=== PATIENT | male | born 1960 | race African-American/Black ===

== ENCOUNTER 2020-04-14 14:37 | Emergency (ER) | payer MEDICAID ==
[~2020-04-14] VITALS: Ht 177.8 cm; Wt 100.0 kg
[~2020-04-14 14:37] MED LIST: GABA-529 PO; NAPR-681 PO
[2020-04-14 18:14] LABS: BASOPHILS % 0.4 % (0.0-2.0); EOSINOPHILS % 2.2 % (0.0-5.0); HEMATOCRIT. 41.7 % (42.0-52.0); HEMOGLOBIN. 14.1 g/dL (14.0-18.0); LYMPHOCYTES % 38.1 % (20.0-50.0); MEAN CORPUSCULAR HEMOGLOBIN 30.3 pg (28.0-32.0); MEAN CORPUSCULAR VOLUME 89.9 fL (80.0-94.0); MEAN PLATELET VOLUME 10.2 fl (7.4-10.4); MONOCYTES % 6.5 % (2.0-8.0); NEUTROPHILS % 52.8 % (40.0-76.0); PLATELET 154 x1000/uL (130-400); RED BLOOD CELL COUNT 4.64 mill/uL (4.7-6.1); RED CELL DISTRIBUTION WIDTH 13.8 % (11.6-14.6)
[2020-04-14 18:20] LABS: CHLORIDE 102 mEq/L (98-107)
[2020-04-14 18:23] LABS: PROTHROMBIN TIME 10.9 sec (9.6-11.0)
[2020-04-14 18:24] LABS: CLARITY URINE CLEAR (CLEAR); COLOR URINE YELLOW (YELLOW); KETONES URINE TRACE (NEGATIVE); LEUKOCYTE ESTERASE URINE 2+ (NEGATIVE); NITRITE URINE NEGATIVE (NEGATIVE); OCCULT BLOOD URINE NEGATIVE (NEGATIVE); PH URINE 5.5 (4.5-8.0); PROTEIN URINE NEGATIVE (NEGATIVE); SPECIFIC GRAVITY URINE 1.018 (1.005-1.030); UROBILINOGEN URINE 0.2 E.U./dL (0.2-1.0)
[2020-04-14 20:02] VITALS: BP 140/76
== END 2020-04-14 20:11 | disposition home or self-care (01) ==
LOC: ER 14:37
DX: R10.11 Right upper quadrant pain (principal); E11.9 Type 2 diabetes mellitus without complications; I10 Essential (primary) hypertension; F12.10 Cannabis abuse, uncomplicated
CPT/HCPCS: 36415; 71101; 76705; 80053; 81003; 85025; 99285

== ENCOUNTER 2024-01-28 08:38 | Emergency (ER) | payer MEDICAID ==
[~2024-01-28] VITALS: Ht 180.3 cm; Wt 95.3 kg
[~2024-01-28 08:38] MED LIST changes: +PROT40 MT
[2024-01-28 08:42] VITALS: O2SAT 100
[2024-01-28 09:21] LABS: BASOPHILS % 0.5 % (0.0-2.0); DIFFERENTIAL COMMENT 0; EOSINOPHILS % 2.3 % (0.0-5.0); HEMATOCRIT. 43.4 % (42.0-52.0); HEMOGLOBIN. 13.9 g/dL (14.0-18.0); LYMPHOCYTES % 34.1 % (20.0-50.0); MEAN CORPUSCULAR HEMOGLOBIN 29.7 pg (28.0-32.0); MEAN CORPUSCULAR HGB CONC 32.1 g/dL (31.0-37.0); MEAN CORPUSCULAR VOLUME 92.6 fL (80.0-94.0); MEAN PLATELET VOLUME 10.2 fl (7.4-10.4); MONOCYTES % 6.4 % (2.0-8.0); NEUTROPHILS % 56.7 % (40.0-76.0); PLATELET 139 x1000/uL (130-400); RED BLOOD CELL COUNT 4.68 mill/uL (4.7-6.1); RED CELL DISTRIBUTION WIDTH 14.2 % (11.6-14.6); WHITE BLOOD COUNT 5.8 x1000/uL (4.5-11.0)
[2024-01-28 09:28] LABS: CHLORIDE 102 mEq/L (98-107); SODIUM 135 mEq/L (136-145)
[2024-01-28 09:29] LABS: CARBON DIOXIDE 27 mEq/L (21-32)
[2024-01-28 09:30] LABS: CALCIUM 9.7 mg/dL (8.7-10.4)
[2024-01-28 09:34] LABS: CREATININE 1.2 mg/dL (0.6-1.3)
[2024-01-28 09:35] LABS: UREA NITROGEN BLOOD 12 mg/dL (9-23)
[2024-01-28 09:36] LABS: ALANINE AMINOTRANSFERASE 28 IU/L (10-49); ALBUMIN 4.6 g/dL (3.2-4.8); ASPARTATE AMINOTRANSFERASE 24 IU/L (<34)
[2024-01-28 09:37] LABS: BILIRUBIN DIRECT 0.1 mg/dL (<=3.0); BILIRUBIN TOTAL 0.5 mg/dL (0.1-1.0); PROTEIN TOTAL 7.9 g/dL (6.0-8.3)
[2024-01-28 09:48] LABS: GLUCOSE 309 mg/dL (70-105)
[2024-01-28 10:32] VITALS: BP 150/94; PULSE 90; RESP 16; TEMP 36.89184; O2SAT 100
== END 2024-01-28 10:33 | disposition home or self-care (01) ==
LOC: ER 08:38
DX: R07.81 Pleurodynia (principal); F12.10 Cannabis abuse, uncomplicated; I10 Essential (primary) hypertension; E11.9 Type 2 diabetes mellitus without complications
CPT/HCPCS: 36415; 71045; 76705; 80048; 80076; 85025; 99284